=== PATIENT | female | born 1995 | race Caucasian/White ===

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

== ENCOUNTER 2018-12-05 17:50 | Emergency (ER) | payer SELFPAY ==
[~2018-12-05] VITALS: Ht 160 cm; Wt 70.5 kg
[2018-12-05 18:08] VITALS: TEMP 98.4
[2018-12-05 19:34] LABS: COLLECTION METHOD CLEAN CATCH
[2018-12-05 19:39] LABS: BASO # 0.1 (0.0-0.2); BASO % 0.5 % (0.0-2.0); EOS # 0.2 (0.0-0.7); EOS % 1.7 % (0-4.0); GRAN # 8.7 (1.4-6.5); GRAN % 69.6 % (42.2-75.2); HEMATOCRIT 39.2 % (37.0-47.0); HEMOGLOBIN 13.1 g/dl (12.5-16.0); LYMPH # 2.6 (1.2-3.4); LYMPH % 20.8 % (20.0-51.0); MEAN CELL VOLUME 90 fl (80.0-100.0); MEAN CORPUSCULAR HEMOGLOBIN 30 pg (27.0-31.0); MEAN CORPUSCULAR HGB CONC 33 g/dl (33.0-37.0); MEAN PLATELET VOLUME 9.4 fl (7.4-10.4); MONO # 0.9 (0.1-0.6); MONO % 7.2 % (1.7-9.3); PLATELET COUNT 380 K/mm3 (130-400); RED BLOOD COUNT 4.38 M/mm3 (4.10-5.30)
[2018-12-05 19:47] LABS: AMORPHOUS CRYSTAL Present /uL; PH 8 (5-8); SQUAMOUS EPITHELIAL None Seen /hpf; URINE APPEARANCE Cloudy; URINE BACTERIA None Seen /hpf; URINE BILIRUBIN Negative (NEGATIVE); URINE BLOOD Negative (NEGATIVE); URINE COLOR Yellow; URINE GLUCOSE Negative (NEGATIVE); URINE KETONE Negative (NEGATIVE); URINE LEUKOCYTE ESTERASE Negative (NEGATIVE); URINE NITRATE Negative (NEGATIVE); URINE PROTEIN(semi-quant) Negative (NEGATIVE); URINE RBC 0-2 /hpf; URINE UROBILINOGEN Negative (NEGATIVE)
[2018-12-05 19:52] LABS: ALANINE AMINOTRANSFERASE < 6 U/L (9-52); ALBUMIN 4.5 gm/dL (3.5-5.0); ALKALINE PHOSPHATASE 40 U/L (50-136); ANION GAP 9 mmol/L (7-16); AST,SGOT 24 U/L (15-37); BILIRUBIN,TOTAL 0.2 mg/dL (0.0-1.0); BLOOD UREA NITROGEN 8 mg/dL (7-17); C-REACTIVE PROTEIN 0.6 mg/dL (0.0-0.9); CALCIUM 9.2 mg/dL (8.4-10.2); CARBON DIOXIDE 26 mmol/L (22-30); CHLORIDE 105 mmol/L (98-107); CREATININE, serum 0.65 (0.52-1.25); GLUCOSE 90 mg/dL (74-106); LIPASE 38 U/L (23-300); POTASSIUM 4.1 mmol/L (3.4-5.0); SODIUM 140 mmol/L (137-145); TOTAL PROTEIN 7.5 gm/dL (6.4-8.2)
[2018-12-05 22:09] VITALS: BP 111/73; PULSE 92
== END 2018-12-05 22:15 | disposition home or self-care (01) ==
LOC: COL.ER 17:50
PROVIDERS: Family Medicine
DX: N83.291 Other ovarian cyst, right side (principal)
CPT/HCPCS: J7030; Q9967

== ENCOUNTER → 2020-12-07 | Outpatient (CLI) | payer BC | LOC: COL.RAD 13:54 | DX: N88.8 Other specified noninflammatory disorders of cervix uteri (principal); N92.6 Irregular menstruation, unspecified; N94.10 Unspecified dyspareunia ==

== ENCOUNTER → 2024-01-17 | Outpatient (CLI) | payer BC | LOC: COL.RAD 15:48 | DX: R22.1 Localized swelling, mass and lump, neck (principal) ==